=== PATIENT | male | born 1975 | race Caucasian/White ===

== ENCOUNTER 2020-11-14 14:06 | Emergency (ER) | payer OTHER ==
[2020-11-14 16:11] LABS: BASOPHIL 0.7 % (0-2); EOSINOPHIL 2.2 % (0-5); HCT 47.2 % (42.0-52.0); HGB 16.1 g/dl (13.2-18.0); LYMPHOCYTE 41.6 % (15-48); MCH 29.8 pg (25.0-31.0); MCHC 34.1 g/dL (32.0-36.0); MCV 87.2 fL (78.0-100.0); MONOCYTE 6.5 % (0-12); MPV 8.4 fL (6.0-9.5); NEUTROPHIL 48.7 % (41-80); NRBC 0; PLT 202 K/uL (150-400); RBC 5.41 M/uL (4.70-6.00); RDW 13.2 % (11.5-14.0); WBC 6.8 K/uL (4.0-10.5)
[2020-11-14 16:23] LABS: BILIRUBIN NEGATIVE (NEGATIVE); BLOOD NEGATIVE Ery/uL (NEGATIVE); CLARITY CLEAR (CLEAR); COLOR YELLOW (YELLOW); GLUCOSE (U) TRACE mg/dL (NORMAL); LEUKOCYTES NEGATIVE Leu/uL (NEGATIVE); NITRITE NEGATIVE (NEGATIVE); PROTEIN NEGATIVE (NEGATIVE); UROBILINOGEN 0.2 mg/dL (0.2-1.0); pH 7.5 (5.0-9.0)
[2020-11-14 16:27] LABS: ALBUMIN 3.7 g/dL (3.4-5.0); BILIRUBIN - TOTAL 0.4 mg/dL (0.2-1.0); BUN/CREAT RATIO (CALC) 14.8 RATIO; CREATININE 0.88 mg/dL (0.67-1.17); GLOBULIN (CALCULATION) 3.8 g/dL; POTASSIUM 3.9 mmol/L (3.5-5.1); TOTAL PROTEIN 7.5 g/dL (6.4-8.2)
[2020-11-14] MEDS ORDERED: PREDNISONE 20MG20 MG PO (17:11)
[2020-11-14] MEDS ORDERED: CYCLOBENZAPRINE10 MG PO (17:11)
== END 2020-11-14 17:51 | disposition home or self-care (01) ==
LOC: FER 14:06
PROVIDERS: Emergency Medicine
DX: R10.9 Unspecified abdominal pain (principal); I10 Essential (primary) hypertension; Z87.820 Personal history of traumatic brain injury; Z87.19 Personal history of other diseases of the digestive system; Z90.49 Acquired absence of other specified parts of digestive tract
CPT/HCPCS: 36415; 80053; 81003; 82150; 83690; 85025

== ENCOUNTER 2021-01-19 19:54 | Emergency (ER) | payer OTHER ==
[~2021-01-19 19:54] MED LIST: CYCLOBENZAPRINE10 MG PO; PREDNISONE 20MG20 MG PO
[2021-01-19 20:57] LABS: BASOPHIL 0.9 % (0-2); EOSINOPHIL 2.7 % (0-5); HCT 45.7 % (42.0-52.0); HGB 15.9 g/dl (13.2-18.0); LYMPHOCYTE 37.6 % (15-48); MCH 29.9 pg (25.0-31.0); MCHC 34.8 g/dL (32.0-36.0); MCV 86.1 fL (78.0-100.0); MONOCYTE 6.9 % (0-12); MPV 8.1 fL (6.0-9.5); NEUTROPHIL 51.6 % (41-80); NRBC 0; PLT 184 K/uL (150-400); RBC 5.31 M/uL (4.70-6.00); RDW 13.2 % (11.5-14.0); WBC 6.7 K/uL (4.0-10.5)
[2021-01-19 21:18] LABS: ALBUMIN 3.9 g/dL (3.4-5.0); BILIRUBIN - TOTAL 0.4 mg/dL (0.2-1.0); BUN/CREAT RATIO (CALC) 11.7 RATIO; CREATININE 0.77 mg/dL (0.67-1.17); GLOBULIN (CALCULATION) 3.6 g/dL; POTASSIUM 3.8 mmol/L (3.5-5.1); TOTAL PROTEIN 7.5 g/dL (6.4-8.2)
[2021-01-19] MEDS ORDERED: BENTYL10 MG PO (22:01)
[2021-01-19 22:29] LABS: BILIRUBIN NEGATIVE (NEGATIVE); BLOOD NEGATIVE Ery/uL (NEGATIVE); CLARITY CLEAR (CLEAR); COLOR YELLOW (YELLOW); GLUCOSE (U) NORMAL (NORMAL); LEUKOCYTES NEGATIVE Leu/uL (NEGATIVE); NITRITE NEGATIVE (NEGATIVE); PROTEIN NEGATIVE (NEGATIVE); SPECIFIC GRAVITY 1.025 (1.001-1.030); UROBILINOGEN 0.2 mg/dL (0.2-1.0)
== END 2021-01-19 22:15 | disposition home or self-care (01) ==
LOC: FER 19:54
PROVIDERS: Emergency Medicine
DX: R10.31 Right lower quadrant pain (principal); M54.9 Dorsalgia, unspecified; G89.29 Other chronic pain; R11.10 Vomiting, unspecified; Z90.49 Acquired absence of other specified parts of digestive tract; Z91.041 Radiographic dye allergy status; Z79.891 Long term (current) use of opiate analgesic
CPT/HCPCS: 36415; 72131; 80053; 81003; 83690; 84145; 85025; J1885